=== PATIENT | female | born 1965 | race African-American/Black ===

== ENCOUNTER 2021-09-30 12:23 | Inpatient (IN) | payer OTHER ==
[2021-09-30] MEDS ORDERED: chlordiazePOXIDE HCL 25 MG CAPSULE PO PRN (13:24)
[2021-09-30] MEDS ORDERED: MAG HYDROX/AL HYDROX/SIMETH 30 ML UNIT-DOSE CUP PO PRN (13:24)
[2021-09-30] MEDS ORDERED: ONDANSETRON *ODT* 4 MG TABLET SL PRN (13:24)
[2021-09-30] MEDS ORDERED: BISMUTH SUBSALICYLATE 262 MG/15 ML BTL PO PRN (13:24)
[2021-09-30] MEDS ORDERED: MAGNESIUM HYDROX 2400MG/30ML ORAL SUSPENSION 30 ML CUP PO PRN (13:24)
[2021-09-30] MEDS ORDERED: MAGNESIUM CITRATE 300 ML BOTTLE PO PRN (13:24)
[2021-09-30] MEDS ORDERED: ACETAMINOPHEN 325 MG TABLET (FP) PO PRN (13:24)
[2021-09-30] MEDS ORDERED: MENTHOL/PHENOL 1 EACH UD MM PRN (13:24)
[2021-09-30] MEDS ORDERED: NICOTINE 10 MG CARTRIDGE (INHALER) IH PRN (13:24)
[2021-09-30 14:14] VITALS: BMI 24.5
[2021-09-30] MEDS: IBUPROFEN 400 MG TABLET (FP) PO PRN (14:51)
[2021-09-30] MEDS: hydrOXYzine PAMOATE 25 MG CAPSULE (FP) PO SCH ×3 (14:51→22:24)
[2021-09-30] MEDS ORDERED: ALBUTEROL SO4 HFA INHALER IH PRN (15:24)
[2021-09-30 16:10] LABS: ALBUMIN 3.7 g/dl (3.4-5.0); BLOOD UREA NITROGEN 22.3 mg/dL (7-18); CALCIUM 9.5 mg/dL (8.5-10.1)
[2021-09-30 16:13] LABS: CREATININE 0.9 mg/dL (0.55-1.3); MCH 33.5 pg (25.7-33.7); MCHC 34.2 g/dl (32.0-36.0); MEAN PLT VOLUME 8.9 fl (7.5-11.1); PLATELET COUNT 241 10^3/uL (134-434); RBC 4.18 M/mm3 (3.60-5.2); RDW 13.4 % (11.6-15.6); WHITE BLOOD COUNT 8.4 K/mm3 (4.0-10.0)
[2021-09-30 16:15] LABS: BILIRUBIN,TOTAL 0.5 mg/dL (0.2-1); TOT PROT 6.9 g/dl (6.4-8.2)
[2021-09-30] MEDS: chlordiazePOXIDE HCL 25 MG CAPSULE PO SCH ×2 (17:52→22:24)
[2021-09-30] MEDS: MELATONIN 5 MG TABLETS PO SCH (22:24)
[2021-09-30] MEDS: MONTELUKAST NA 10 MG TABLET PO SCH (22:24)
[2021-09-30] MEDS: ATORVASTATIN CA 10 MG TABLET (FP) PO SCH (22:24)
[2021-09-30] MEDS: THIAMINE HCL 100 MG TABLET (FP) PO SCH (22:24)
[2021-10-01] MEDS: BUDESONIDE/FORMETEROL FUMARATE 160/4.5 mcg INHALER IH SCH ×3 (00:32→22:04)
[2021-10-01] MEDS: hydrOXYzine PAMOATE 25 MG CAPSULE (FP) PO SCH ×5 (06:46→21:47)
[2021-10-01] MEDS: ACETAMINOPHEN 325 MG TABLET (FP) PO PRN (06:47)
[2021-10-01] MEDS: METHOCARBAMOL 500 MG TABLET PO PRN ×2 (06:47→21:49)
[2021-10-01] MEDS: chlordiazePOXIDE HCL 25 MG CAPSULE PO SCH ×4 (08:04→22:01)
[2021-10-01] MEDS: PRENATAL VITAMINS W/ FOLIC ACID TABLET (FP) PO SCH (10:18)
[2021-10-01] MEDS: PANTOPRAZOLE 20 MG TABLET PO SCH (10:19)
[2021-10-01] MEDS: IBUPROFEN 400 MG TABLET (FP) PO PRN (10:23)
[2021-10-01] MEDS: QUEtiapine FUMARATE 50 MG TABLET PO SCH (21:46)
[2021-10-01] MEDS: THIAMINE HCL 100 MG TABLET (FP) PO SCH (21:46)
[2021-10-01] MEDS: BENZTROPINE MESYLATE 1 MG TABLET PO SCH (21:46)
[2021-10-01] MEDS: ATORVASTATIN CA 10 MG TABLET (FP) PO SCH (21:46)
[2021-10-01] MEDS: MELATONIN 5 MG TABLETS PO SCH (21:46)
[2021-10-01] MEDS ORDERED: risperiDONE 0.5 MG TABLET PO SCH (22:00)
[2021-10-01] MEDS: MONTELUKAST NA 10 MG TABLET PO SCH (22:07)
[2021-10-02] MEDS: chlordiazePOXIDE HCL 25 MG CAPSULE PO SCH ×4 (06:00→23:16)
[2021-10-02] MEDS: hydrOXYzine PAMOATE 25 MG CAPSULE (FP) PO SCH ×5 (06:18→22:23)
[2021-10-02] MEDS: PRENATAL VITAMINS W/ FOLIC ACID TABLET (FP) PO SCH (10:15)
[2021-10-02] MEDS: BUDESONIDE/FORMETEROL FUMARATE 160/4.5 mcg INHALER IH SCH ×2 (10:15→22:21)
[2021-10-02] MEDS: PANTOPRAZOLE 20 MG TABLET PO SCH (10:15)
[2021-10-02] MEDS: IBUPROFEN 400 MG TABLET (FP) PO PRN (13:12)
[2021-10-02] MEDS: METHOCARBAMOL 500 MG TABLET PO PRN ×2 (13:12→20:23)
[2021-10-02] MEDS: MONTELUKAST NA 10 MG TABLET PO SCH (22:19)
[2021-10-02] MEDS: BENZTROPINE MESYLATE 1 MG TABLET PO SCH (22:19)
[2021-10-02] MEDS: THIAMINE HCL 100 MG TABLET (FP) PO SCH (22:19)
[2021-10-02] MEDS: ATORVASTATIN CA 10 MG TABLET (FP) PO SCH (22:19)
[2021-10-02] MEDS: QUEtiapine FUMARATE 50 MG TABLET PO SCH (22:19)
[2021-10-02] MEDS: MELATONIN 5 MG TABLETS PO SCH (22:23)
[2021-10-03] MEDS ORDERED: chlordiazePOXIDE HCL 10 MG CAPSULE PO PRN
[2021-10-03] MEDS: chlordiazePOXIDE HCL 10 MG CAPSULE PO SCH ×4 (06:12→22:10)
[2021-10-03] MEDS: hydrOXYzine PAMOATE 25 MG CAPSULE (FP) PO SCH ×5 (06:14→22:12)
[2021-10-03] MEDS: IBUPROFEN 400 MG TABLET (FP) PO PRN ×2 (07:02→18:27)
[2021-10-03] MEDS: METHOCARBAMOL 500 MG TABLET PO PRN ×2 (07:02→18:26)
[2021-10-03] MEDS: BUDESONIDE/FORMETEROL FUMARATE 160/4.5 mcg INHALER IH SCH ×2 (10:14→22:12)
[2021-10-03] MEDS: PANTOPRAZOLE 20 MG TABLET PO SCH (10:16)
[2021-10-03] MEDS: PRENATAL VITAMINS W/ FOLIC ACID TABLET (FP) PO SCH (10:16)
[2021-10-03] MEDS: BENZTROPINE MESYLATE 1 MG TABLET PO SCH (22:10)
[2021-10-03] MEDS: ATORVASTATIN CA 10 MG TABLET (FP) PO SCH (22:11)
[2021-10-03] MEDS: MELATONIN 5 MG TABLETS PO SCH (22:11)
[2021-10-03] MEDS: MONTELUKAST NA 10 MG TABLET PO SCH (22:12)
[2021-10-03] MEDS: THIAMINE HCL 100 MG TABLET (FP) PO SCH (22:12)
[2021-10-03] MEDS: QUEtiapine FUMARATE 50 MG TABLET PO SCH (22:12)
[2021-10-04] MEDS: chlordiazePOXIDE HCL 10 MG CAPSULE PO SCH ×2 (06:05→17:34)
[2021-10-04] MEDS: hydrOXYzine PAMOATE 25 MG CAPSULE (FP) PO SCH ×5 (06:05→22:13)
[2021-10-04] MEDS: ACETAMINOPHEN 325 MG TABLET (FP) PO PRN (08:12)
[2021-10-04] MEDS: METHOCARBAMOL 500 MG TABLET PO PRN ×3 (08:12→22:13)
[2021-10-04] MEDS: PRENATAL VITAMINS W/ FOLIC ACID TABLET (FP) PO SCH (10:06)
[2021-10-04] MEDS: PANTOPRAZOLE 20 MG TABLET PO SCH (10:06)
[2021-10-04] MEDS: IBUPROFEN 400 MG TABLET (FP) PO PRN (10:08)
[2021-10-04] MEDS: BUDESONIDE/FORMETEROL FUMARATE 160/4.5 mcg INHALER IH SCH ×2 (15:24→23:36)
[2021-10-04] MEDS: BENZTROPINE MESYLATE 1 MG TABLET PO SCH (22:13)
[2021-10-04] MEDS: ATORVASTATIN CA 10 MG TABLET (FP) PO SCH (22:13)
[2021-10-04] MEDS: MONTELUKAST NA 10 MG TABLET PO SCH (22:13)
[2021-10-04] MEDS: THIAMINE HCL 100 MG TABLET (FP) PO SCH (22:13)
[2021-10-04] MEDS: QUEtiapine FUMARATE 50 MG TABLET PO SCH (22:13)
[2021-10-04] MEDS: MELATONIN 5 MG TABLETS PO SCH (23:36)
[2021-10-05] MEDS ORDERED: chlordiazePOXIDE HCL 10 MG CAPSULE PO ONE (05:00)
[2021-10-05] MEDS: hydrOXYzine PAMOATE 25 MG CAPSULE (FP) PO SCH (06:12)
[2021-10-05 06:46] VITALS: BP 99/60; PULSE 54; TEMP 96.8
== END 2021-10-05 08:46 | disposition home or self-care (01) | DRG 774 ==
LOC: YASAS 12:23 → Y6N 14:02
PROVIDERS: ADMIT Allergy & Immunology; ATTEND Allergy & Immunology
PROC: HZ2ZZZZ Detoxification Services for Substance Abuse Treatment (ICD-10-PCS; principal; 2021-09-30)
DX: F10.230 Alcohol dependence with withdrawal, uncomplicated (principal); F14.20 Cocaine dependence, uncomplicated; F17.213 Nicotine dependence, cigarettes, with withdrawal; F20.9 Schizophrenia, unspecified; F19.24 Other psychoactive substance dependence with psychoactive substance-induced mood disorder; F32.A Depression, unspecified; F41.9 Anxiety disorder, unspecified; I10 Essential (primary) hypertension; J45.20 Mild intermittent asthma, uncomplicated; K21.9 Gastro-esophageal reflux disease without esophagitis; E78.5 Hyperlipidemia, unspecified; M54.30 Sciatica, unspecified side; Z91.013 Allergy to seafood
CPT/HCPCS: 36415; 80053; 85027; 86780; C9803; Q0162; U0003; U0005

== ENCOUNTER 2022-12-01 12:54 | Inpatient (IN) | payer OTHER ==
[2022-12-01] MEDS ORDERED: BISMUTH SUBSALICYLATE 524 MG/30 ML PO PRN (14:52)
[2022-12-01] MEDS ORDERED: ACETAMINOPHEN 325 MG TABLET (FP) PO PRN ×2 (14:52)
[2022-12-01] MEDS ORDERED: NALOXONE HCL (KLOXXADO) 8 MG SPRAY NS PRN (14:52)
[2022-12-01] MEDS ORDERED: ONDANSETRON *ODT* 4 MG TABLET SL PRN (14:52)
[2022-12-01] MEDS ORDERED: BENZOCAINE/MENTHOL (CHLORASEPTIC ) LOZENGE MM PRN (14:52)
[2022-12-01] MEDS ORDERED: hydrOXYzine PAMOATE 25 MG CAPSULE (FP) PO PRN (14:52)
[2022-12-01] MEDS ORDERED: LOPERAMIDE HCL 2 MG CAPSULE PO PRN (14:52)
[2022-12-01] MEDS ORDERED: DICYCLOMINE HCL 10 MG CAPSULE PO PRN (14:52)
[2022-12-01] MEDS ORDERED: MAGNESIUM HYDROX 2400MG/30ML ORAL SUSPENSION 30 ML CUP PO PRN (14:52)
[2022-12-01] MEDS ORDERED: POLYETHYLENE GLYCOL (HEALTHYLAX) 3350 17 GM PACKET PO PRN (14:52)
[2022-12-01] MEDS ORDERED: NICOTINE 10 MG CARTRIDGE (INHALER) IH PRN (14:52)
[2022-12-01] MEDS ORDERED: IBUPROFEN 400 MG TABLET (FP) PO PRN (14:52)
[2022-12-01] MEDS ORDERED: METHOCARBAMOL 500 MG TABLET PO PRN (14:52)
[2022-12-01] MEDS ORDERED: IBUPROFEN 600 MG TABLET (FP) PO PRN (14:52)
[2022-12-01] MEDS: PRENATAL VITAMINS W/ FOLIC ACID TABLET (FP) PO SCH (17:27)
[2022-12-01] MEDS: NICOTINE 14 MG/24 HOURS TOPICAL PATCH TD SCH (17:27)
[2022-12-01] MEDS: ALBUTEROL SO4 HFA INHALER IH PRN ×2 (17:30→22:00)
[2022-12-01] MEDS: THIAMINE HCL 100 MG TABLET (FP) PO SCH (21:57)
[2022-12-01] MEDS: BUDESONIDE/FORMETEROL FUMARATE 160/4.5 mcg INHALER IH SCH (21:57)
[2022-12-01] MEDS: MELATONIN 5 MG TABLETS PO SCH (21:57)
[2022-12-01] MEDS: ATORVASTATIN CA 10 MG TABLET (FP) PO SCH (21:57)
[2022-12-01] MEDS: MAG HYDROX/AL HYDROX/SIMETH 30 ML UNIT-DOSE CUP PO PRN (21:58)
[2022-12-02] MEDS: MAG HYDROX/AL HYDROX/SIMETH 30 ML UNIT-DOSE CUP PO PRN ×3 (04:17→20:14)
[2022-12-02] MEDS: PANTOPRAZOLE 20 MG TABLET PO SCH (10:38)
[2022-12-02] MEDS: PRENATAL VITAMINS W/ FOLIC ACID TABLET (FP) PO SCH (10:38)
[2022-12-02] MEDS: BUDESONIDE/FORMETEROL FUMARATE 160/4.5 mcg INHALER IH SCH ×2 (10:39→22:02)
[2022-12-02] MEDS: NICOTINE 14 MG/24 HOURS TOPICAL PATCH TD SCH (10:40)
[2022-12-02 10:51] LABS: HEMATOCRIT 37.6 % (32.4-45.2); HEMOGLOBIN 12.7 GM/dL (10.7-15.3); MCHC 33.7 g/dl (32.0-36.0); MEAN CELL VOLUME 100.9 fl (80-96); MEAN PLT VOLUME 8.3 fl (7.5-11.1); PLATELET COUNT 264 10^3/uL (134-434); RBC 3.72 M/mm3 (3.60-5.2); RDW 13.8 % (11.6-15.6); WHITE BLOOD COUNT 6.4 K/mm3 (4.0-10.0)
[2022-12-02 11:20] LABS: BLOOD UREA NITROGEN 19.2 mg/dL (7-18)
[2022-12-02 11:21] LABS: ALBUMIN 2.8 g/dl (3.4-5.0); CALCIUM 8.8 mg/dL (8.5-10.1)
[2022-12-02 11:24] LABS: CREATININE 0.7 mg/dL (0.55-1.3)
[2022-12-02 11:25] LABS: TOT PROT 5.2 g/dl (6.4-8.2)
[2022-12-02 11:27] LABS: BILIRUBIN,TOTAL 0.5 mg/dL (0.2-1)
[2022-12-02] MEDS: THIAMINE HCL 100 MG TABLET (FP) PO SCH (22:02)
[2022-12-02] MEDS: MELATONIN 5 MG TABLETS PO SCH (22:02)
[2022-12-02] MEDS: ATORVASTATIN CA 10 MG TABLET (FP) PO SCH (22:02)
[2022-12-03] MEDS: MAG HYDROX/AL HYDROX/SIMETH 30 ML UNIT-DOSE CUP PO PRN (02:03)
[2022-12-03 09:05] VITALS: BP 105/67; PULSE 86; RESP 18; TEMP 97.3
[2022-12-03] MEDS: PANTOPRAZOLE 20 MG TABLET PO SCH (09:48)
[2022-12-03] MEDS: PRENATAL VITAMINS W/ FOLIC ACID TABLET (FP) PO SCH (09:48)
[2022-12-03] MEDS: NICOTINE 14 MG/24 HOURS TOPICAL PATCH TD SCH (09:49)
[2022-12-03] MEDS: BUDESONIDE/FORMETEROL FUMARATE 160/4.5 mcg INHALER IH SCH (09:52)
== END 2022-12-03 10:02 | disposition home or self-care (01) | DRG 774 ==
LOC: YASAS 12:54 → UNDOADMIN 14:53 → Y3N 14:53
PROVIDERS: ADMIT Allergy & Immunology; ATTEND Surgery
PROC: HZ2ZZZZ Detoxification Services for Substance Abuse Treatment (ICD-10-PCS; principal; 2022-12-01)
DX: F10.230 Alcohol dependence with withdrawal, uncomplicated (principal); F14.20 Cocaine dependence, uncomplicated; F17.210 Nicotine dependence, cigarettes, uncomplicated; F20.9 Schizophrenia, unspecified; F31.9 Bipolar disorder, unspecified; I10 Essential (primary) hypertension; J45.20 Mild intermittent asthma, uncomplicated; K21.9 Gastro-esophageal reflux disease without esophagitis; M54.30 Sciatica, unspecified side; R63.4 Abnormal weight loss; Z68.20 Body mass index [BMI] 20.0-20.9, adult
CPT/HCPCS: 36415; 80053; 82140; 85027; 86780; 87811; C9803-CS; U0003; U0005

== ENCOUNTER 2023-05-27 14:15 | Inpatient (IN) | payer OTHER ==
[2023-05-27 15:15] VITALS: BMI 22.3
[2023-05-27] MEDS ORDERED: ONDANSETRON *ODT* 4 MG TABLET SL PRN (19:32)
[2023-05-27] MEDS ORDERED: LOPERAMIDE HCL 2 MG CAPSULE PO PRN (19:32)
[2023-05-27] MEDS ORDERED: ACETAMINOPHEN 325 MG TABLET (FP) PO PRN (19:32)
[2023-05-27] MEDS ORDERED: BENZOCAINE/MENTHOL (CHLORASEPTIC ) LOZENGE MM PRN (19:32)
[2023-05-27] MEDS ORDERED: IBUPROFEN 400 MG TABLET (FP) PO PRN (19:32)
[2023-05-27] MEDS ORDERED: POLYETHYLENE GLYCOL (HEALTHYLAX) 3350 17 GM PACKET PO PRN (19:32)
[2023-05-27] MEDS ORDERED: IBUPROFEN 600 MG TABLET (FP) PO PRN (19:32)
[2023-05-27] MEDS ORDERED: BENZONATATE 200 MG CAPSULE PO PRN (19:32)
[2023-05-27] MEDS ORDERED: guaiFENesin 600 MG TABLET.ER (FP) PO PRN (19:32)
[2023-05-27] MEDS ORDERED: METHOCARBAMOL 500 MG TABLET PO PRN (19:32)
[2023-05-27] MEDS ORDERED: DICYCLOMINE HCL 10 MG CAPSULE PO PRN (19:32)
[2023-05-27] MEDS ORDERED: MAGNESIUM HYDROX 2400MG/30ML ORAL SUSPENSION 30 ML CUP PO PRN (19:32)
[2023-05-27] MEDS ORDERED: hydrOXYzine PAMOATE 25 MG CAPSULE (FP) PO PRN (19:32)
[2023-05-27] MEDS ORDERED: BISMUTH SUBSALICYLATE 524 MG/30 ML PO PRN (19:32)
[2023-05-27] MEDS ORDERED: NALOXONE HCL 0.4 MG/ML VIAL IM PRN (19:32)
[2023-05-27] MEDS ORDERED: NALOXONE HCL (KLOXXADO) 8 MG SPRAY NS PRN (19:32)
[2023-05-27] MEDS ORDERED: MAG HYDROX/AL HYDROX/SIMETH 30 ML UNIT-DOSE CUP PO PRN (19:32)
[2023-05-27] MEDS ORDERED: diazePAM 5 MG TABLET PO PRN (19:32)
[2023-05-27] MEDS: THIAMINE HCL 100 MG TABLET (FP) PO SCH (22:52)
[2023-05-27] MEDS: diazePAM 5 MG TABLET PO SCH (22:53)
[2023-05-27] MEDS: MELATONIN 5 MG TABLETS PO SCH (22:53)
[2023-05-27] MEDS: ALBUTEROL SO4 HFA INHALER IH PRN (22:55)
[2023-05-27] MEDS: BUDESONIDE/FORMETEROL FUMARATE 160/4.5 mcg INHALER IH SCH (23:28)
[2023-05-28] MEDS: diazePAM 5 MG TABLET PO SCH ×4 (04:49→22:15)
[2023-05-28] MEDS: PANTOPRAZOLE 20 MG TABLET PO SCH (10:09)
[2023-05-28] MEDS: PRENATAL VITAMINS W/ FOLIC ACID TABLET (FP) PO SCH (10:09)
[2023-05-28] MEDS: BUDESONIDE/FORMETEROL FUMARATE 160/4.5 mcg INHALER IH SCH ×2 (10:52→22:15)
[2023-05-28] MEDS: ARIPiprazole 5 MG TABLET PO SCH (12:59)
[2023-05-28] MEDS: ATORVASTATIN CA 10 MG TABLET (FP) PO SCH (22:14)
[2023-05-28] MEDS: THIAMINE HCL 100 MG TABLET (FP) PO SCH (22:14)
[2023-05-28] MEDS: MELATONIN 5 MG TABLETS PO SCH (22:14)
[2023-05-28] MEDS: ALBUTEROL SO4 HFA INHALER IH PRN (22:15)
[2023-05-28] MEDS: MIRTAZAPINE 15 MG TABLET (FP) PO SCH (23:12)
[2023-05-29] MEDS: diazePAM 5 MG TABLET PO SCH ×3 (06:08→22:25)
[2023-05-29] MEDS: PANTOPRAZOLE 20 MG TABLET PO SCH (10:23)
[2023-05-29] MEDS: PRENATAL VITAMINS W/ FOLIC ACID TABLET (FP) PO SCH (10:24)
[2023-05-29] MEDS: BUDESONIDE/FORMETEROL FUMARATE 160/4.5 mcg INHALER IH SCH ×2 (10:24→22:25)
[2023-05-29] MEDS: ARIPiprazole 5 MG TABLET PO SCH (10:24)
[2023-05-29 11:39] LABS: HEMOGLOBIN 12.9 GM/dL (10.7-15.3); MCH 33.3 pg (25.7-33.7); MEAN CELL VOLUME 100.8 fl (80-96); MEAN PLT VOLUME 9.1 fl (7.5-11.1); PLATELET COUNT 233 10^3/uL (134-434); RBC 3.86 M/mm3 (3.60-5.2); RDW 13.9 % (11.6-15.6)
[2023-05-29 12:08] LABS: POTASSIUM 3.8 mmol/L (3.5-5.1)
[2023-05-29 12:12] LABS: CALCIUM 8.4 mg/dL (8.5-10.1)
[2023-05-29 12:13] LABS: ALBUMIN 2.8 g/dl (3.4-5.0); BLOOD UREA NITROGEN 22.8 mg/dL (7-18)
[2023-05-29 12:16] LABS: CREATININE 0.7 mg/dL (0.55-1.3)
[2023-05-29 12:17] LABS: TOT PROT 5.3 g/dl (6.4-8.2)
[2023-05-29 12:18] LABS: BILIRUBIN,TOTAL 0.2 mg/dL (0.2-1)
[2023-05-29] MEDS: ATORVASTATIN CA 10 MG TABLET (FP) PO SCH (22:25)
[2023-05-29] MEDS: MIRTAZAPINE 15 MG TABLET (FP) PO SCH (22:25)
[2023-05-29] MEDS: THIAMINE HCL 100 MG TABLET (FP) PO SCH (22:25)
[2023-05-29] MEDS: MELATONIN 5 MG TABLETS PO SCH (22:27)
[2023-05-30] MEDS ORDERED: diazePAM 5 MG TABLET PO SCH (06:00)
[2023-05-30] MEDS: ARIPiprazole 5 MG TABLET PO SCH (10:02)
[2023-05-30] MEDS: PANTOPRAZOLE 20 MG TABLET PO SCH (10:02)
[2023-05-30] MEDS: BUDESONIDE/FORMETEROL FUMARATE 160/4.5 mcg INHALER IH SCH (10:02)
[2023-05-30] MEDS: PRENATAL VITAMINS W/ FOLIC ACID TABLET (FP) PO SCH (10:02)
[2023-05-30 10:03] VITALS: RESP 18
[2023-05-30 12:38] VITALS: BP 107/86; PULSE 89; TEMP 97.4
[2023-05-31] MEDS ORDERED: diazePAM 5 MG TABLET PO ONE (06:00)
== END 2023-05-30 15:25 | disposition home or self-care (01) | DRG 774 ==
LOC: YASAS 14:15 → Y6N 19:53
PROVIDERS: ADMIT Allergy & Immunology; ATTEND Allergy & Immunology
PROC: HZ2ZZZZ Detoxification Services for Substance Abuse Treatment (ICD-10-PCS; principal; 2023-05-27)
DX: F10.230 Alcohol dependence with withdrawal, uncomplicated (principal); F14.20 Cocaine dependence, uncomplicated; F17.213 Nicotine dependence, cigarettes, with withdrawal; F25.1 Schizoaffective disorder, depressive type; F19.982 Other psychoactive substance use, unspecified with psychoactive substance-induced sleep disorder; E78.5 Hyperlipidemia, unspecified; J43.0 Unilateral pulmonary emphysema [MacLeod's syndrome]; J45.20 Mild intermittent asthma, uncomplicated; K21.9 Gastro-esophageal reflux disease without esophagitis; Z91.013 Allergy to seafood; Z56.0 Unemployment, unspecified
CPT/HCPCS: 36415; 80053; 85027; 86780; 87635; Q0162

== ENCOUNTER 2024-04-30 13:43 | Inpatient (IN) | payer OTHER ==
[2024-04-30 15:57] VITALS: BMI 18.0
[2024-04-30] MEDS ORDERED: IBUPROFEN 400 MG TABLET (FP) PO PRN (17:13)
[2024-04-30] MEDS ORDERED: ACETAMINOPHEN 325 MG TABLET (FP) PO PRN (17:13)
[2024-04-30] MEDS ORDERED: NICOTINE POLACRILEX 2 MG GUM BUC PRN (17:13)
[2024-04-30] MEDS ORDERED: BENZOCAINE/MENTHOL (CHLORASEPTIC ) LOZENGE MM PRN (17:13)
[2024-04-30] MEDS ORDERED: DICYCLOMINE HCL 10 MG CAPSULE PO PRN (17:13)
[2024-04-30] MEDS ORDERED: NICOTINE POLACRILEX 2 MG LOZENGE BC PRN (17:13)
[2024-04-30] MEDS ORDERED: MAGNESIUM HYDROX 2400MG/30ML ORAL SUSPENSION 30 ML CUP PO PRN (17:13)
[2024-04-30] MEDS ORDERED: BISMUTH SUBSALICYLATE 524 MG/30 ML PO PRN (17:13)
[2024-04-30] MEDS ORDERED: BENZONATATE 200 MG CAPSULE PO PRN (17:13)
[2024-04-30] MEDS ORDERED: POLYETHYLENE GLYCOL (HEALTHYLAX) 3350 17 GM PACKET PO PRN (17:13)
[2024-04-30] MEDS ORDERED: guaiFENesin 600 MG TABLET.ER (FP) PO PRN (17:13)
[2024-04-30] MEDS ORDERED: LOPERAMIDE HCL 2 MG CAPSULE PO PRN (17:13)
[2024-04-30] MEDS ORDERED: ALBUTEROL SO4 HFA INHALER IH PRN (18:00)
[2024-04-30] MEDS: LIDOCAINE 5% TOPICAL PATCH TP SCH (18:21)
[2024-04-30] MEDS: METHOCARBAMOL 500 MG TABLET PO PRN (22:34)
[2024-04-30] MEDS: IBUPROFEN 600 MG TABLET (FP) PO PRN (22:34)
[2024-04-30] MEDS: LIDOCAINE PATCH REMOVAL MC SCH (22:36)
[2024-04-30] MEDS: THIAMINE 100 MG TABLET PO SCH (22:36)
[2024-04-30] MEDS: MELATONIN 5 MG TABLETS PO SCH (22:36)
[2024-04-30] MEDS: hydrOXYzine PAMOATE 25 MG CAPSULE (FP) PO PRN (22:36)
[2024-05-01] MEDS ORDERED: chlordiazePOXIDE HCL 25 MG CAPSULE PO PRN (08:45)
[2024-05-01] MEDS: chlordiazePOXIDE HCL 25 MG CAPSULE PO SCH (10:17)
[2024-05-01] MEDS: FAMOTIDINE 20 MG TABLET PO SCH (10:17)
[2024-05-01] MEDS: PRENATAL VITAMINS W/ FOLIC ACID TABLET (FP) PO SCH (10:19)
[2024-05-01] MEDS: BUDESONIDE/FORMETEROL FUMARATE 160/4.5 mcg INHALER IH SCH (10:20)
[2024-05-01 11:48] LABS: HEMATOCRIT 37.4 % (32.4-45.2); HEMOGLOBIN 12.8 GM/dL (10.7-15.3); MCH 33.9 pg (25.7-33.7); MCHC 34.3 g/dl (32.0-36.0); MEAN CELL VOLUME 98.8 fl (80-96); MEAN PLT VOLUME 8.2 fl (7.5-11.1); PLATELET COUNT 203 10^3/uL (134-434); RBC 3.79 M/mm3 (3.60-5.2); RDW 13.6 % (11.6-15.6); WHITE BLOOD COUNT 5.5 K/mm3 (4.0-10.0)
[2024-05-01 11:59] LABS: CHLORIDE 109 mmol/L (98-107); SODIUM 144 mmol/L (136-145)
[2024-05-01 12:02] LABS: ALBUMIN 3.1 g/dl (3.4-5.0); CALCIUM 8.9 mg/dL (8.5-10.1)
[2024-05-01 12:04] LABS: ANION GAP 7 mmol/L (4-13); BLOOD UREA NITROGEN 23.3 mg/dL (7-18); CO2 28 mmol/L (21-32); GLUCOSE,RANDOM 144 mg/dL (74-106)
[2024-05-01 12:06] LABS: CREATININE 0.8 mg/dL (0.55-1.3)
[2024-05-01 12:07] LABS: BILIRUBIN,TOTAL 0.4 mg/dL (0.2-1); SGOT/AST 27 U/L (15-37); SGPT/ALT 34 U/L (13-61); TOT PROT 5.6 g/dl (6.4-8.2)
[2024-05-01 12:10] LABS: ALK PHOS 74 U/L (45-117)
[2024-05-01] MEDS: ONDANSETRON *ODT* 4 MG TABLET SL PRN (12:36)
[2024-05-01] MEDS: MAG HYDROX/AL HYDROX/SIMETH 30 ML UNIT-DOSE CUP PO PRN (12:37)
[2024-05-01] MEDS: ATORVASTATIN CA 10 MG TABLET (FP) PO SCH (22:06)
[2024-05-02] MEDS: POTASSIUM CHLORIDE ORAL LIQUID 20 MEQ/15 ML PO SCH (11:55)
[2024-05-02 18:36] VITALS: BP 99/65; PULSE 79; RESP 16; TEMP 98
[2024-05-03] MEDS ORDERED: chlordiazePOXIDE HCL 25 MG CAPSULE PO SCH (05:00)
[2024-05-04] MEDS ORDERED: chlordiazePOXIDE HCL 10 MG CAPSULE PO PRN
[2024-05-04] MEDS ORDERED: chlordiazePOXIDE HCL 10 MG CAPSULE PO SCH (05:00)
[2024-05-05] MEDS ORDERED: chlordiazePOXIDE HCL 10 MG CAPSULE PO SCH (05:00)
[2024-05-06] MEDS ORDERED: chlordiazePOXIDE HCL 10 MG CAPSULE PO ONE (05:00)
== END 2024-05-02 17:40 | disposition left against medical advice (07) | DRG 770 ==
LOC: YASAS 13:43 → Y3N 17:53 → Y6N 18:26
PROVIDERS: ADMIT Allergy & Immunology; ATTEND Surgery
PROC: HZ2ZZZZ Detoxification Services for Substance Abuse Treatment (ICD-10-PCS; principal; 2024-04-30)
DX: F10.230 Alcohol dependence with withdrawal, uncomplicated (principal); F14.20 Cocaine dependence, uncomplicated; F17.210 Nicotine dependence, cigarettes, uncomplicated; F10.280 Alcohol dependence with alcohol-induced anxiety disorder; F10.24 Alcohol dependence with alcohol-induced mood disorder; F20.9 Schizophrenia, unspecified; E87.6 Hypokalemia; J45.20 Mild intermittent asthma, uncomplicated; K21.9 Gastro-esophageal reflux disease without esophagitis; E78.00 Pure hypercholesterolemia, unspecified; R73.9 Hyperglycemia, unspecified; R79.89 Other specified abnormal findings of blood chemistry; Z62.810 Personal history of physical and sexual abuse in childhood
CPT/HCPCS: 36415; 72100-TC-FY; 72220-TC-FY; 80053; 80305; 80307; 85027; 86780; 93005; 93010; Q0162

== ENCOUNTER 2024-08-17 10:00 | Inpatient (IN) | payer OTHER ==
[2024-08-17 10:28] VITALS: BMI 17.2
[2024-08-17] MEDS ORDERED: POLYETHYLENE GLYCOL (HEALTHYLAX) 3350 17 GM PACKET PO PRN (11:21)
[2024-08-17] MEDS ORDERED: MAG HYDROX/AL HYDROX/SIMETH 30 ML UNIT-DOSE CUP PO PRN (11:21)
[2024-08-17] MEDS ORDERED: LOPERAMIDE HCL 2 MG CAPSULE PO PRN (11:21)
[2024-08-17] MEDS ORDERED: NICOTINE POLACRILEX 4 MG GUM BUC PRN (11:21)
[2024-08-17] MEDS ORDERED: NALOXONE (NYS OPIOID OVERDOSE PROGRAM) 4 MG/0.1 ML SPRAY NS PRN (11:21)
[2024-08-17] MEDS ORDERED: guaiFENesin 600 MG TABLET.ER (FP) PO PRN (11:21)
[2024-08-17] MEDS ORDERED: ACETAMINOPHEN 325 MG TABLET (FP) PO PRN (11:21)
[2024-08-17] MEDS ORDERED: IBUPROFEN 600 MG TABLET (FP) PO PRN (11:21)
[2024-08-17] MEDS ORDERED: NALOXONE (NARCAN) HCL 4 MG/0.1 ML SPRAY NS PRN (11:21)
[2024-08-17] MEDS ORDERED: NICOTINE POLACRILEX 4 MG LOZENGE BC PRN (11:21)
[2024-08-17] MEDS ORDERED: LORazepam 1 MG TABLET PO PRN (11:21)
[2024-08-17] MEDS ORDERED: IBUPROFEN 400 MG TABLET (FP) PO PRN (11:21)
[2024-08-17] MEDS ORDERED: BENZONATATE 200 MG CAPSULE PO PRN (11:21)
[2024-08-17] MEDS ORDERED: MAGNESIUM HYDROX 2400MG/30ML ORAL SUSPENSION 30 ML CUP PO PRN (11:21)
[2024-08-17] MEDS ORDERED: BENZOCAINE/MENTHOL (CHLORASEPTIC ) LOZENGE MM PRN (11:21)
[2024-08-17] MEDS ORDERED: ONDANSETRON *ODT* 4 MG TABLET SL PRN (11:21)
[2024-08-17] MEDS ORDERED: BENZOCAINE 20 % GEL TUBE MM PRN (11:56)
[2024-08-17] MEDS ORDERED: LIDOCAINE 5% TOPICAL PATCH TP PRN (12:15)
[2024-08-17] MEDS: LORazepam 2 MG TABLET PO SCH (17:32)
[2024-08-17] MEDS: ALBUTEROL SO4 HFA INHALER IH PRN (17:36)
[2024-08-17] MEDS: METHOCARBAMOL 500 MG TABLET PO PRN (22:33)
[2024-08-17] MEDS: MELATONIN 5 MG TABLETS PO SCH (22:33)
[2024-08-17] MEDS: THIAMINE 100 MG TABLET PO SCH (22:33)
[2024-08-17] MEDS: LIDOCAINE PATCH REMOVAL MC SCH (22:35)
[2024-08-17] MEDS: CHLORHEXIDINE GLUCONATE 0.12% 15ML CUP MM SCH (22:35)
[2024-08-18 09:58] LABS: HEMATOCRIT 39.4 % (32.4-45.2); HEMOGLOBIN 13.1 GM/dL (10.7-15.3); MCH 33.4 pg (25.7-33.7); MCHC 33.3 g/dl (32.0-36.0); MEAN CELL VOLUME 100.4 fl (80-96); MEAN PLT VOLUME 9.5 fl (7.5-11.1); PLATELET COUNT 154 10^3/uL (134-434); RBC 3.92 M/mm3 (3.60-5.2); RDW 13.9 % (11.6-15.6); WHITE BLOOD COUNT 6.8 K/mm3 (4.0-10.0)
[2024-08-18] MEDS: PRENATAL VITAMINS W/ FOLIC ACID TABLET (FP) PO SCH (10:07)
[2024-08-18 10:23] LABS: CHLORIDE 111 mmol/L (98-107); POTASSIUM 4.1 mmol/L (3.5-5.1); SODIUM 141 mmol/L (136-145)
[2024-08-18 10:37] LABS: ALBUMIN 3.4 g/dl (3.4-5.0); CALCIUM 8.7 mg/dL (8.5-10.1)
[2024-08-18 10:38] LABS: ANION GAP 4 mmol/L (4-13); BLOOD UREA NITROGEN 21.3 mg/dL (7-18); CO2 26 mmol/L (21-32); GLUCOSE,RANDOM 96 mg/dL (74-106)
[2024-08-18 10:40] LABS: SGOT/AST 26 U/L (15-37); SGPT/ALT 29 U/L (13-61)
[2024-08-18 10:41] LABS: CREATININE 0.7 mg/dL (0.55-1.3)
[2024-08-18 10:42] LABS: BILIRUBIN,TOTAL 0.5 mg/dL (0.2-1); TOT PROT 6.3 g/dl (6.4-8.2)
[2024-08-18 10:43] LABS: ALK PHOS 76 U/L (45-117)
[2024-08-18] MEDS: DICYCLOMINE HCL 10 MG CAPSULE PO PRN (14:59)
[2024-08-18] MEDS: QUEtiapine FUMARATE 50 MG TABLET PO SCH (21:58)
[2024-08-19] MEDS: LORazepam 1 MG TABLET PO SCH (06:00)
[2024-08-19] MEDS: BISMUTH SUBSALICYLATE 524 MG/30 ML PO PRN (12:11)
[2024-08-20] MEDS ORDERED: LORazepam 0.5 MG TABLET PO PRN
[2024-08-20] MEDS: LORazepam 0.5 MG TABLET PO SCH (05:56)
[2024-08-20 12:59] VITALS: BP 105/61; PULSE 69; RESP 16; TEMP 97.6
[2024-08-21] MEDS ORDERED: LORazepam 0.5 MG TABLET PO ONE (05:00)
== END 2024-08-20 16:00 | disposition home or self-care (01) | DRG 774 ==
LOC: YASAS 10:00 → Y6N 12:00
PROVIDERS: ADMIT Surgery; ATTEND Surgery
PROC: HZ2ZZZZ Detoxification Services for Substance Abuse Treatment (ICD-10-PCS; principal; 2024-08-17)
DX: F10.230 Alcohol dependence with withdrawal, uncomplicated (principal); F14.20 Cocaine dependence, uncomplicated; F17.210 Nicotine dependence, cigarettes, uncomplicated; F20.9 Schizophrenia, unspecified; F19.282 Other psychoactive substance dependence with psychoactive substance-induced sleep disorder; F19.24 Other psychoactive substance dependence with psychoactive substance-induced mood disorder; F41.9 Anxiety disorder, unspecified; I10 Essential (primary) hypertension; J45.20 Mild intermittent asthma, uncomplicated; K21.9 Gastro-esophageal reflux disease without esophagitis; M54.50 Low back pain, unspecified; G89.29 Other chronic pain; Z86.79 Personal history of other diseases of the circulatory system
CPT/HCPCS: 36415; 80053; 80305; 80307; 84520; 85027; 86780; 93005; 93010

== ENCOUNTER 2024-09-25 18:44 | Inpatient (IN) | payer OTHER ==
[2024-09-25 19:04] VITALS: BMI 15.4
[2024-09-25] MEDS ORDERED: NALOXONE (NARCAN) HCL 4 MG/0.1 ML SPRAY NS PRN (19:46)
[2024-09-25] MEDS ORDERED: BENZOCAINE/MENTHOL (CHLORASEPTIC ) LOZENGE MM PRN (19:46)
[2024-09-25] MEDS ORDERED: IBUPROFEN 400 MG TABLET (FP) PO PRN (19:46)
[2024-09-25] MEDS ORDERED: POLYETHYLENE GLYCOL (HEALTHYLAX) 3350 17 GM PACKET PO PRN (19:46)
[2024-09-25] MEDS ORDERED: BENZONATATE 200 MG CAPSULE PO PRN (19:46)
[2024-09-25] MEDS ORDERED: ONDANSETRON *ODT* 4 MG TABLET SL PRN (19:46)
[2024-09-25] MEDS ORDERED: guaiFENesin 600 MG TABLET.ER (FP) PO PRN (19:46)
[2024-09-25] MEDS ORDERED: MAGNESIUM HYDROX 2400MG/30ML ORAL SUSPENSION 30 ML CUP PO PRN (19:46)
[2024-09-25] MEDS ORDERED: ACETAMINOPHEN 325 MG TABLET (FP) PO PRN (19:46)
[2024-09-25] MEDS: BUDESONIDE/FORMETEROL FUMARATE 80/4.5 mcg INHALER IH SCH (21:19)
[2024-09-25] MEDS: ALBUTEROL SO4 HFA INHALER IH PRN (21:19)
[2024-09-25] MEDS: QUEtiapine FUMARATE 50 MG TABLET PO ONE (21:20)
[2024-09-25] MEDS: levETIRAcetam 500 MG TABLET (FP) PO SCH (21:20)
[2024-09-25] MEDS: MELATONIN 5 MG TABLETS PO SCH (21:21)
[2024-09-25] MEDS: THIAMINE 100 MG TABLET PO SCH (21:21)
[2024-09-25] MEDS: diazePAM 5 MG TABLET PO SCH (23:38)
[2024-09-26] MEDS: PRENATAL VITAMINS W/ FOLIC ACID TABLET (FP) PO SCH (10:22)
[2024-09-26] MEDS: PANTOPRAZOLE 40 MG TABLET PO SCH (10:22)
[2024-09-26 12:02] LABS: HEMATOCRIT 34.1 % (32.4-45.2); HEMOGLOBIN 11.3 GM/dL (10.7-15.3); MCH 33.1 pg (25.7-33.7); MCHC 33.2 g/dl (32.0-36.0); MEAN CELL VOLUME 99.7 fl (80-96); MEAN PLT VOLUME 8.5 fl (7.5-11.1); PLATELET COUNT 229 10^3/uL (134-434); RBC 3.42 M/mm3 (3.60-5.2); RDW 14.1 % (11.6-15.6); WHITE BLOOD COUNT 5.6 K/mm3 (4.0-10.0)
[2024-09-26 13:02] LABS: CHLORIDE 112 mmol/L (98-107); POTASSIUM 3.4 mmol/L (3.5-5.1); SODIUM 144 mmol/L (136-145)
[2024-09-26 13:04] LABS: ALBUMIN 2.9 g/dl (3.4-5.0); ANION GAP 5 mmol/L (4-13); CALCIUM 8.7 mg/dL (8.5-10.1); CO2 27 mmol/L (21-32); GLUCOSE,RANDOM 99 mg/dL (74-106)
[2024-09-26 13:05] LABS: BLOOD UREA NITROGEN 26.4 mg/dL (7-18)
[2024-09-26 13:09] LABS: CREATININE 0.8 mg/dL (0.55-1.3); SGOT/AST 15 U/L (15-37); SGPT/ALT 24 U/L (13-61)
[2024-09-26 13:10] LABS: BILIRUBIN,TOTAL 0.1 mg/dL (0.2-1); TOT PROT 5.3 g/dl (6.4-8.2)
[2024-09-26 13:12] LABS: ALK PHOS 58 U/L (45-117)
[2024-09-26] MEDS: LOPERAMIDE HCL 2 MG CAPSULE PO PRN (13:51)
[2024-09-26] MEDS: QUEtiapine FUMARATE 50 MG TABLET PO SCH (22:20)
[2024-09-27] MEDS: diazePAM 5 MG TABLET PO SCH (06:05)
[2024-09-27] MEDS: MAG HYDROX/AL HYDROX/SIMETH 30 ML UNIT-DOSE CUP PO PRN (14:59)
[2024-09-27] MEDS: METHOCARBAMOL 500 MG TABLET PO PRN (22:15)
[2024-09-28] MEDS: diazePAM 5 MG TABLET PO SCH (05:49)
[2024-09-28] MEDS: DICYCLOMINE HCL 10 MG CAPSULE PO PRN (08:34)
[2024-09-28] MEDS: diazePAM 5 MG TABLET PO PRN (10:09)
[2024-09-28] MEDS: BISMUTH SUBSALICYLATE 524 MG/30 ML PO PRN (23:30)
[2024-09-29] MEDS: diazePAM 5 MG TABLET PO ONE (06:39)
[2024-09-29] MEDS: IBUPROFEN 600 MG TABLET (FP) PO PRN (10:10)
[2024-09-29] MEDS: hydrOXYzine PAMOATE 25 MG CAPSULE (FP) PO PRN (10:13)
[2024-09-30 11:54] VITALS: TEMP 97.6
[2024-09-30 13:55] VITALS: BP 104/78; PULSE 70; RESP 16
== END 2024-09-30 14:39 | disposition home or self-care (01) | DRG 774 ==
LOC: YASAS 18:44 → Y6N 19:53
PROVIDERS: ADMIT Allergy & Immunology; ATTEND Surgery
PROC: HZ2ZZZZ Detoxification Services for Substance Abuse Treatment (ICD-10-PCS; principal; 2024-09-25)
DX: F10.230 Alcohol dependence with withdrawal, uncomplicated (principal); F14.20 Cocaine dependence, uncomplicated; F17.213 Nicotine dependence, cigarettes, with withdrawal; F19.982 Other psychoactive substance use, unspecified with psychoactive substance-induced sleep disorder; F19.980 Other psychoactive substance use, unspecified with psychoactive substance-induced anxiety disorder; F20.9 Schizophrenia, unspecified; I10 Essential (primary) hypertension; J45.20 Mild intermittent asthma, uncomplicated; K21.9 Gastro-esophageal reflux disease without esophagitis; R79.89 Other specified abnormal findings of blood chemistry; R55 Syncope and collapse; E78.5 Hyperlipidemia, unspecified; M19.90 Unspecified osteoarthritis, unspecified site; M54.59 Other low back pain; G40.909 Epilepsy, unspecified, not intractable, without status epilepticus; K08.9 Disorder of teeth and supporting structures, unspecified; W18.39XA Other fall on same level, initial encounter; Y93.89 Activity, other specified; Y92.239 Unspecified place in hospital as the place of occurrence of the external cause; Z62.810 Personal history of physical and sexual abuse in childhood; Z91.013 Allergy to seafood; Z56.0 Unemployment, unspecified
CPT/HCPCS: 0241U-QW; 36415; 70450-TC; 71045-TC-FY; 72125-TC; 80053; 80307; 81003; 82962; 83735; 83880; 84132; 84484; 85025; 85027; 86780; 86803; 87086; 87389; 93005; 93010; 99285-25